=== PATIENT | male | born 1990 | race Caucasian/White ===

== ENCOUNTER 2021-10-30 22:48 | Emergency (ER) | payer SELFPAY ==
[2021-10-31 01:12] LABS: C. TRACHOMATIS BY PCR DETECTED; N. GONORRHOEAE BY PCR NOT DETECTED
[2021-10-31] MEDS ORDERED: Doxycycline Monohydrate 100 MG Cap PO STA (01:34)
== END 2021-10-31 01:52 | disposition home or self-care (01) ==
LOC: JD.ED 22:48
DX: A60.00 Herpesviral infection of urogenital system, unspecified (principal); A74.9 Chlamydial infection, unspecified; F17.210 Nicotine dependence, cigarettes, uncomplicated
CPT/HCPCS: 87491; 87591; 99283; A9270